=== PATIENT | female | born 1995 | race African-American/Black ===

== ENCOUNTER 2016-11-22 12:22 | Emergency (ER) | payer MEDICAID ==
[2016-11-22 15:06] LABS: HCG SERUM NEGATIVE (NEGATIVE)
== END 2016-11-22 16:24 | disposition home or self-care (01) ==
LOC: D.ER 12:22
PROVIDERS: Physician Assistant
DX: M54.6 Pain in thoracic spine (principal); F17.200 Nicotine dependence, unspecified, uncomplicated

== ENCOUNTER 2017-09-05 19:22 | Emergency (ER) | payer MEDICAID | END 2017-09-06 01:02 | disposition home or self-care (01) | LOC: D.ER 19:22 | DX: J11.1 Influenza due to unidentified influenza virus with other respiratory manifestations (principal); F17.200 Nicotine dependence, unspecified, uncomplicated; J02.9 Acute pharyngitis, unspecified; R05 Cough; R09.89 Other specified symptoms and signs involving the circulatory and respiratory systems ==

== ENCOUNTER 2017-09-14 18:15 | Emergency (ER) | payer MEDICAID | END 2017-09-14 22:40 | disposition home or self-care (01) | LOC: D.ER 18:15 | DX: J11.1 Influenza due to unidentified influenza virus with other respiratory manifestations (principal); R09.89 Other specified symptoms and signs involving the circulatory and respiratory systems; R51 Headache ==

== ENCOUNTER 2017-10-28 20:22 | Emergency (ER) | payer MEDICAID | END 2017-10-28 21:47 | disposition home or self-care (01) | LOC: D.ER 20:22 | DX: R07.89 Other chest pain (principal) ==

== ENCOUNTER 2018-01-12 21:23 | Emergency (ER) | payer MEDICAID ==
[~2018-01-12] VITALS: Ht 160 cm; Wt 70.5 kg
[2018-01-12 21:39] VITALS: Ht 160 cm; Wt 70.5 kg
[2018-01-12 23:09] LABS: APPEARANCE CLEAR (CLEAR); BILIRUBIN NEGATIVE (NEGATIVE); COLOR YELLOW (YELLOW); GLUCOSE NEGATIVE (NEGATIVE); KETONE NEGATIVE (NEGATIVE); NITRITE NEGATIVE (NEGATIVE); PROTEIN NEGATIVE (NEGATIVE); SPECIFIC GRAVITY 1.015 (1.005-1.020); UROBILINOGEN NORMAL (NORMAL)
[2018-01-12 23:13] LABS: HCG URINE NEGATIVE (NEGATIVE)
[2018-01-12 23:48] VITALS: BP 110/65
== END 2018-01-12 23:46 | disposition home or self-care (01) ==
LOC: D.ER 21:23
PROVIDERS: Family Medicine
DX: M79.672 Pain in left foot (principal); M79.671 Pain in right foot; F17.200 Nicotine dependence, unspecified, uncomplicated

== ENCOUNTER 2018-06-09 11:53 | Emergency (ER) | payer MEDICAID ==
[~2018-06-09] VITALS: Ht 160 cm; Wt 66.8 kg
[2018-06-09 11:58] VITALS: Ht 160 cm; Wt 66.8 kg
[2018-06-09] MEDS ORDERED: MEDROL DOSE PACK4 MG PO (13:06)
[2018-06-09] MEDS ORDERED: NORCO 7.5/325 T1 TA1 PO (13:06)
[2018-06-09 13:38] VITALS: BP 122/62
== END 2018-06-09 13:39 | disposition home or self-care (01) ==
LOC: D.ER 11:53
DX: M94.0 Chondrocostal junction syndrome [Tietze] (principal); F17.200 Nicotine dependence, unspecified, uncomplicated

== ENCOUNTER 2018-07-26 12:53 | Emergency (ER) | payer MEDICAID ==
[~2018-07-26] VITALS: Ht 160 cm; Wt 65.0 kg
[~2018-07-26 12:53] MED LIST: MEDROL DOSE PACK4 MG PO; NORCO 7.5/325 T1 TA1 PO
[2018-07-26 13:00] VITALS: BP 135/66; Ht 160 cm; Wt 65.0 kg
[2018-07-26] MEDS ORDERED: TORADOL10 MG PO (14:12)
== END 2018-07-26 14:52 | disposition home or self-care (01) ==
LOC: D.ER 12:53
DX: S93.401A Sprain of unspecified ligament of right ankle, initial encounter (principal); X50.1XXA Overexertion from prolonged static or awkward postures, initial encounter; Y93.89 Activity, other specified; Y92.019 Unspecified place in single-family (private) house as the place of occurrence of the external cause; F17.200 Nicotine dependence, unspecified, uncomplicated

== ENCOUNTER 2019-03-02 22:47 | Emergency (ER) | payer MEDICAID ==
[~2019-03-02] VITALS: Ht 160 cm; Wt 59.9 kg
[~2019-03-02 22:47] MED LIST changes: +TORADOL10 MG PO
[2019-03-02 22:57] VITALS: Ht 160 cm; Wt 59.9 kg
[2019-03-03] MEDS ORDERED: HYDROCODON-ACE1 EA10 PO (00:44)
[2019-03-03 01:02] VITALS: BP 118/68
== END 2019-03-03 01:02 | disposition home or self-care (01) ==
LOC: D.ER 22:47
DX: S63.501A Unspecified sprain of right wrist, initial encounter (principal); W22.8XXA Striking against or struck by other objects, initial encounter; Y93.89 Activity, other specified; Y92.89 Other specified places as the place of occurrence of the external cause

== ENCOUNTER 2019-06-30 09:21 | Emergency (ER) | payer MEDICAID ==
[~2019-06-30] VITALS: Ht 160 cm; Wt 60.0 kg
[~2019-06-30 09:21] MED LIST changes: +HYDROCODON-ACE1 EA10 PO
[2019-06-30 09:27] VITALS: Ht 160 cm; Wt 60.0 kg
[2019-06-30] MEDS ORDERED: IBUPROFEN800 MG PO (09:55)
[2019-06-30 10:20] VITALS: BP 103/68
== END 2019-06-30 10:15 | disposition home or self-care (01) ==
LOC: D.ER 09:21
DX: S61.217A Laceration without foreign body of left little finger without damage to nail, initial encounter (principal); W26.0XXA Contact with knife, initial encounter; Y93.9 Activity, unspecified; Y92.9 Unspecified place or not applicable

== ENCOUNTER 2020-03-13 17:01 | Emergency (ER) | payer MEDICAID ==
[~2020-03-13 17:01] MED LIST changes: +IBUPROFEN800 MG PO
[2020-03-13 17:21] VITALS: Ht 160 cm
[2020-03-13] MEDS ORDERED: VOLTAREN75 MG PO (18:47)
[2020-03-13] MEDS ORDERED: BACLOFEN20 M1 PO (18:47)
[2020-03-13 19:40] VITALS: BP 129/78
== END 2020-03-13 19:40 | disposition home or self-care (01) ==
LOC: D.ER 17:01
DX: R07.89 Other chest pain (principal)